=== PATIENT | female | born 1970 | race Caucasian/White ===

== ENCOUNTER 2017-02-09 18:50 | Emergency (ER) | payer MEDICAID ==
[~2017-02-09 18:50] MED LIST: NORCO1 TA2 PO
[2017-02-09 23:05] LABS: BASOPHIL % 0.6 % (0-2); PLATELET COUNT 238 x10^3mcL (130-400)
[2017-02-09 23:06] LABS: RED CELL DISTRIBUTION WIDTH 15.5 % (11.5-14.5)
[2017-02-09 23:17] LABS: CALCIUM 9.1 mg/dL (8.5-10.1); CARBON DIOXIDE 31.2 mmol/L (21-32); CHLORIDE SERUM 102 mmol/L (98-107); CREATININE SERUM 0.8 mg/dL (0.6-1.0); GFR1 > 60 mL/min; GLUCOSE SERUM 103 mg/dL (74-106); POTASSIUM SERUM 3.8 mmol/L (3.5-5.1); SODIUM SERUM 141 mmol/L (136-145)
[2017-02-09 23:22] LABS: ALBUMIN 3.2 g/dL (3.4-5.0); ALKALINE PHOSPHATASE 57 U/L (46-116); ALT/SGPT 14 U/L (14-59); AST/SGOT 15 U/L (15-37); BILIRUBIN TOTAL 0.36 mg/dL (0.20-1.00); CHOLESTEROL 166 mg/dL (<200); CHOLESTEROL/HDL RATIO 2.5; HDL CHOLESTEROL 66 mg/dL (40-60); LIPASE 546 IU/L (73-393); TOTAL PROTEIN, SERUM 7.7 g/dL (6.4-8.2); TRIGLYCERIDES 76 mg/dL (<150)
[2017-02-09 23:44] LABS: FREE T4 1.29 ng/dL (0.76-1.46); FREE THYROXINE INDEX 3.4 ug/dL (1.4-4.5); T3 TOTAL 0.98 ng/mL; T4(THYROXINE) 9.9 ug/dL (4.7-13.3)
[2017-02-09 23:57] LABS: UA SPECIFIC GRAVITY <=1.005 (1.005-1.035); microscopic required? YES; urine erythrocyte TRACE (NEGATIVE)
[2017-02-10 03:50] VITALS: BP 91/64
== END 2017-02-10 03:41 | disposition short-term general hospital (02) ==
LOC: ED 18:50
PROVIDERS: Specialist
DX: R10.31 Right lower quadrant pain (principal)
CPT/HCPCS: 83880; 84439; J0694; J1885; J2405; J3010; J7030; J7040

== ENCOUNTER 2017-03-10 10:59 | Emergency (ER) | payer MEDICAID ==
[~2017-03-10] VITALS: Ht 152.4 cm; Wt 64.9 kg
[2017-03-10 15:02] LABS: BASOPHIL % 0.4 % (0-2); PLATELET COUNT 308 x10^3mcL (130-400)
[2017-03-10 15:02] LABS: UA SPECIFIC GRAVITY >=1.030 (1.005-1.035); microscopic required? YES; urine erythrocyte TRACE (NEGATIVE)
[2017-03-10 15:11] LABS: RED CELL DISTRIBUTION WIDTH 15.1 % (11.5-14.5)
[2017-03-10 15:22] LABS: CALCIUM 8.6 mg/dL (8.5-10.1); CARBON DIOXIDE 31.7 mmol/L (21-32); CHLORIDE SERUM 103 mmol/L (98-107); CREATININE SERUM 0.8 mg/dL (0.6-1.0); GFR1 > 60 mL/min; GLUCOSE SERUM 84 mg/dL (74-106); POTASSIUM SERUM 3.8 mmol/L (3.5-5.1); SODIUM SERUM 140 mmol/L (136-145)
[2017-03-10 15:26] LABS: ALKALINE PHOSPHATASE 66 U/L (46-116); ALT/SGPT 18 U/L (14-59); AMYLASE 76 U/L (25-115); AST/SGOT 16 U/L (15-37); BILIRUBIN TOTAL 0.5 mg/dL (0.20-1.00); LIPASE 527 IU/L (73-393); TOTAL PROTEIN, SERUM 7.6 g/dL (6.4-8.2)
[2017-03-10 15:51] LABS: ALBUMIN 2.5 g/dL (3.4-5.0)
[2017-03-10 16:58] LABS: AMPHETAMINE QUAL UR NONE DETECTED (NEG <=1000)
[2017-03-10 17:52] VITALS: BP 109/64
== END 2017-03-10 17:52 | disposition home or self-care (01) ==
LOC: ED 10:59
PROVIDERS: Emergency Medicine
DX: G89.29 Other chronic pain (principal); R10.84 Generalized abdominal pain
CPT/HCPCS: 80307; J1885; J2270; J2405; J7030; Q9967

== ENCOUNTER 2017-05-31 21:37 | Emergency (ER) | payer SELFPAY ==
[2017-06-01 01:45] VITALS: BP 102/69
== END 2017-06-01 01:45 | disposition home or self-care (01) ==
LOC: ED 21:37
DX: R51 Headache (principal)
CPT/HCPCS: J1170; Q0162

== ENCOUNTER 2017-06-04 16:44 | Emergency (ER) | payer SELFPAY ==
[~2017-06-04] VITALS: Ht 165.1 cm; Wt 69.5 kg
[2017-06-04 19:35] VITALS: BP 119/78
== END 2017-06-04 20:25 | disposition home or self-care (01) ==
LOC: ED 16:44
DX: R51 Headache (principal); R10.9 Unspecified abdominal pain; Z98.2 Presence of cerebrospinal fluid drainage device
CPT/HCPCS: J1885

== ENCOUNTER 2017-07-11 20:38 | Emergency (ER) | payer SELFPAY ==
[2017-07-11 23:20] LABS: CALCIUM 8.4 mg/dL (8.5-10.1); CARBON DIOXIDE 31.4 mmol/L (21-32); CHLORIDE SERUM 98 mmol/L (98-107); CREATININE SERUM 0.8 mg/dL (0.6-1.0); GFR1 > 60 mL/min; GLUCOSE SERUM 98 mg/dL (74-106); SODIUM SERUM 137 mmol/L (136-145)
[2017-07-11 23:21] LABS: BASOPHIL % 0.4 % (0-2); PLATELET COUNT 174 x10^3mcL (130-400); RED CELL DISTRIBUTION WIDTH 14.3 % (11.5-14.5)
[2017-07-11 23:25] LABS: ALKALINE PHOSPHATASE 60 U/L (46-116); ALT/SGPT 22 U/L (14-59); AST/SGOT 21 U/L (15-37); BILIRUBIN TOTAL 0.2 mg/dL (0.20-1.00); C REACTIVE PROTEIN 0.7 mg/dL (<=0.9); TOTAL PROTEIN, SERUM 7.6 g/dL (6.4-8.2)
[2017-07-11 23:27] LABS: ALBUMIN 3.3 g/dL (3.4-5.0)
[2017-07-11 23:44] LABS: UA SPECIFIC GRAVITY <=1.005 (1.005-1.035); microscopic required? YES; urine erythrocyte NEGATIVE (NEGATIVE)
[2017-07-12 01:19] VITALS: BP 108/65
== END 2017-07-12 01:19 | disposition home or self-care (01) ==
LOC: ED 20:38
PROVIDERS: Emergency Medicine
DX: N39.0 Urinary tract infection, site not specified (principal)
CPT/HCPCS: 36415; J1170; Q0162

== ENCOUNTER 2017-10-23 22:24 | Emergency (ER) | payer SELFPAY ==
[2017-10-24 00:30] VITALS: BP 144/97
== END 2017-10-24 00:30 | disposition home or self-care (01) ==
LOC: ED 22:24
DX: S62.102A Fracture of unspecified carpal bone, left wrist, initial encounter for closed fracture (principal); W19.XXXA Unspecified fall, initial encounter; Y93.89 Activity, other specified; Y99.8 Other external cause status; Y92.89 Other specified places as the place of occurrence of the external cause
CPT/HCPCS: 82962; J1885